=== PATIENT | male | born 1965 | race Caucasian/White ===

== ENCOUNTER 2024-10-06 19:29 | Inpatient (IN) | payer OTHER ==
[2024-10-06 21:00] LABS: BASO % 0.5 % (0-2.0); EOS % 0.5 % (0-4.5); HEMATOCRIT 43.2 % (35.4-49); HEMOGLOBIN 14.9 GM/dL (11.7-16.9); LYMPH % 16.2 % (8-40); MCH 30.6 pg (25.7-33.7); MCHC 34.5 g/dl (32.0-35.9); MEAN CELL VOLUME 88.6 fl (80-96); MEAN PLT VOLUME 7.2 fl (7.5-11.1); MONO % 8.2 % (3.8-10.2); NEUT % 74.6 % (42.8-82.8); PLATELET COUNT 252 10^3/uL (134-434); RBC 4.88 M/mm3 (4.00-5.60); RDW 13.1 % (11.9-15.9); WHITE BLOOD COUNT 11.6 K/mm3 (4.0-10.0)
[2024-10-06 21:01] LABS: URINE APPEARANCE CLEAR; URINE BILIRUBIN NEGATIVE (NEGATIVE); URINE COLOR YELLOW; URINE GLUCOSE (UA) 3+ (NEGATIVE); URINE KETONE NEGATIVE (NEGATIVE); URINE LEUK ESTERASE NEGATIVE (NEGATIVE); URINE NITRITE NEGATIVE (NEGATIVE); URINE PROTEIN NEGATIVE (NEGATIVE); URINE UROBILINOGEN 0.2 mg/dL (0.2-1.0)
[2024-10-06 21:07] LABS: INR 1.04 (0.83-1.09); PROTHROMBIN TIME (PATIENT) 11.9 SEC (9.7-13.0)
[2024-10-06 21:10] LABS: ACTIVATED PTT 33.2 SECONDS (25.2-36.5)
[2024-10-06 21:22] LABS: CHLORIDE 100 mmol/L (98-107); POTASSIUM 4.4 mmol/L (3.5-5.1); SODIUM 136 mmol/L (136-145)
[2024-10-06 21:24] LABS: CALCIUM 9.3 mg/dL (8.5-10.1)
[2024-10-06 21:25] LABS: ALBUMIN 3.4 g/dl (3.4-5.0); ANION GAP 6 mmol/L (4-13); CO2 30 mmol/L (21-32)
[2024-10-06 21:28] LABS: CREATININE 1.1 mg/dL (0.55-1.3); SGOT/AST 10 U/L (15-37); SGPT/ALT 18 U/L (13-61)
[2024-10-06 21:30] LABS: BILIRUBIN,TOTAL 0.3 mg/dL (0.2-1); TOT PROT 6.7 g/dl (6.4-8.2)
[2024-10-06 21:31] LABS: ALK PHOS 171 U/L (45-117)
[2024-10-06] MEDS ORDERED: morphine SULFATE 4 MG/ML VIAL ONE (21:46)
[2024-10-06] MEDS ORDERED: PIPERACILLIN/TAZOB 4.5 GM 4.5 GM/100 ML BAG IVPB ONE (21:47)
[2024-10-06] MEDS: morphine SULFATE 4 MG/ML VIAL IVPUSH ONE (21:50)
[2024-10-06 22:00] LABS: GLUCOSE,RANDOM 462 mg/dL (74-106)
[2024-10-06] MEDS: PIPERACILLIN/TAZOB 3.375 GM 4.5 GM in DEXTROSE 5%-WATER - 50 ML IVPB ONE (22:01)
[2024-10-06] MEDS: SODIUM CHLORIDE 1,000 ML IV STA (23:27)
[2024-10-07] MEDS: LACTATED RINGERS SOLUTION 1000 ML INFUS.BAG IV ONE (01:01)
[2024-10-07] MEDS ORDERED: morphine SULFATE 4 MG/ML VIAL ONE (03:11)
[2024-10-07] MEDS: morphine CARPU-JECT 4 MG/1 ML DISP.SYRIN IVPUSH ONE (03:27)
[2024-10-07 04:29] VITALS: BMI 22.3
[2024-10-07] MEDS: LISINOPRIL 20 MG TABLET PO SCH (10:31)
[2024-10-07] MEDS ORDERED: INSULIN ASPART SLIDING SCALE (NOVOLOG) 1 VIAL SQ SCH (11:00)
[2024-10-07 11:01] LABS: HEMATOCRIT 41.5 % (35.4-49); HEMOGLOBIN 14.1 GM/dL (11.7-16.9); MCH 30.1 pg (25.7-33.7); MEAN CELL VOLUME 88.7 fl (80-96); MEAN PLT VOLUME 7.5 fl (7.5-11.1); PLATELET COUNT 248 10^3/uL (134-434); RBC 4.67 M/mm3 (4.00-5.60); RDW 12.9 % (11.9-15.9); WHITE BLOOD COUNT 11.9 K/mm3 (4.0-10.0)
[2024-10-07 11:21] LABS: ALBUMIN 3.2 g/dl (3.4-5.0); CALCIUM 8.8 mg/dL (8.5-10.1); MAGNESIUM 1.8 mg/dL (1.8-2.4)
[2024-10-07 11:24] LABS: BILIRUBIN,TOTAL 0.5 mg/dL (0.2-1); CREATININE 0.6 mg/dL (0.55-1.3); TOT PROT 6.2 g/dl (6.4-8.2)
[2024-10-07 11:25] LABS: PHOSPHOROUS 2.8 mg/dL (2.5-4.9)
[2024-10-07] MEDS: INSULIN ASPART SLIDING SCALE (NOVOLOG) 1 VIAL SQ SCH (11:29)
[2024-10-07] MEDS: PIPERACILLIN/TAZOB 3.375 GM 50 ML IVPB SCH (15:45)
[2024-10-07] MEDS: ACETAMINOPHEN 325 MG TABLET (FP) PO PRN (21:34)
[2024-10-08 08:31] LABS: BASO % 0.5 % (0-2.0); EOS % 0.7 % (0-4.5); HEMATOCRIT 42.7 % (35.4-49); HEMOGLOBIN 14.2 GM/dL (11.7-16.9); LYMPH % 27.6 % (8-40); MCH 29.8 pg (25.7-33.7); MCHC 33.3 g/dl (32.0-35.9); MEAN CELL VOLUME 89.5 fl (80-96); MEAN PLT VOLUME 7.2 fl (7.5-11.1); NEUT % 63.2 % (42.8-82.8); PLATELET COUNT 267 10^3/uL (134-434); RBC 4.78 M/mm3 (4.00-5.60); WHITE BLOOD COUNT 10.3 K/mm3 (4.0-10.0)
[2024-10-08 08:48] LABS: POTASSIUM 3.9 mmol/L (3.5-5.1)
[2024-10-08 08:59] LABS: ALBUMIN 2.9 g/dl (3.4-5.0); BLOOD UREA NITROGEN 17.7 mg/dL (7-18)
[2024-10-08 09:02] LABS: CREATININE 0.7 mg/dL (0.55-1.3)
[2024-10-08 09:03] LABS: BILIRUBIN,TOTAL 0.5 mg/dL (0.2-1)
[2024-10-08 09:04] LABS: TOT PROT 6.1 g/dl (6.4-8.2)
[2024-10-08] MEDS: INSULIN (NOVOLOG) ASPART 100 UNITS/ML 10ML VIAL SQ ONE (14:24)
[2024-10-10 10:11] LABS: POTASSIUM 3.8 mmol/L (3.5-5.1)
[2024-10-10 10:23] LABS: BLOOD UREA NITROGEN 16.5 mg/dL (7-18)
[2024-10-10 10:27] LABS: BILIRUBIN,TOTAL 0.3 mg/dL (0.2-1); CREATININE 0.7 mg/dL (0.55-1.3); TOT PROT 6.3 g/dl (6.4-8.2)
[2024-10-10 11:06] LABS: BASO % 0.5 % (0-2.0); HEMATOCRIT 42.8 % (35.4-49); HEMOGLOBIN 14.7 GM/dL (11.7-16.9); LYMPH % 33.8 % (8-40); MCH 30.6 pg (25.7-33.7); MCHC 34.4 g/dl (32.0-35.9); MEAN CELL VOLUME 89.1 fl (80-96); MONO % 10.3 % (3.8-10.2); NEUT % 54.4 % (42.8-82.8); PLATELET COUNT 320 10^3/uL (134-434); RBC 4.81 M/mm3 (4.00-5.60); RDW 12.9 % (11.9-15.9); WHITE BLOOD COUNT 6.5 K/mm3 (4.0-10.0)
[2024-10-10] MEDS ORDERED: INSULIN ASPART SLIDING SCALE (NOVOLOG) 1 VIAL SQ ONE (18:23)
[2024-10-11 09:53] LABS: BASO % 0.4 % (0-2.0); EOS % 1.7 % (0-4.5); HEMATOCRIT 42.2 % (35.4-49); HEMOGLOBIN 14.3 GM/dL (11.7-16.9); LYMPH % 37.3 % (8-40); MCH 30.1 pg (25.7-33.7); MEAN CELL VOLUME 88.6 fl (80-96); MEAN PLT VOLUME 7.1 fl (7.5-11.1); MONO % 8.7 % (3.8-10.2); NEUT % 51.9 % (42.8-82.8); PLATELET COUNT 330 10^3/uL (134-434); RBC 4.76 M/mm3 (4.00-5.60); RDW 13.1 % (11.9-15.9)
[2024-10-11 10:11] LABS: POTASSIUM 4.4 mmol/L (3.5-5.1)
[2024-10-11 10:15] LABS: ALBUMIN 3.1 g/dl (3.4-5.0)
[2024-10-11 10:16] LABS: BLOOD UREA NITROGEN 19.3 mg/dL (7-18)
[2024-10-11 10:18] LABS: CREATININE 0.7 mg/dL (0.55-1.3)
[2024-10-11 10:20] LABS: BILIRUBIN,TOTAL 0.2 mg/dL (0.2-1); TOT PROT 6.4 g/dl (6.4-8.2)
[2024-10-11] MEDS ORDERED: PROPOFOL 20 ML ONE (11:15)
[2024-10-11] MEDS ORDERED: LIDOCAINE HCL 2% JELLY 6 ML TP ONE (11:15)
[2024-10-11] MEDS ORDERED: MIDAZOLAM HCL 2 MG/2 ML SINGLE DOSE VIAL ONE ×2 (11:15→14:39)
[2024-10-11] MEDS ORDERED: ONDANSETRON 4 MG/2 ML VIAL ONE (11:15)
[2024-10-11] MEDS: PIPERACILLIN/TAZOBACTAM 3.375 GM VIAL IVPB ONE (13:08)
[2024-10-11] MEDS ORDERED: LIDOCAINE 1%/EPI 1:100000 (20 ML MULTI DOSE VIAL) ONE (13:11)
[2024-10-11] MEDS ORDERED: BUPIVACAINE HCL/PF 0.5% (5MG/ML) 10 ML VIAL ONE (13:11)
[2024-10-11] MEDS ORDERED: PIPERACILLIN/TAZOBACTAM 3.375 GM VIAL IVPB ONE (13:11)
[2024-10-11] MEDS: BUPIVACAINE HCL/PF 0.5% (5 MG/ML) 30 ML VIAL IJ ONE ×2 (13:23)
[2024-10-11] MEDS: LIDOCAINE 1%/EPI 1:100000 (50 ML MULTI DOSE VIAL) INF ONE ×2 (13:23)
[2024-10-11] MEDS ORDERED: ONDANSETRON 4 MG/2 ML VIAL IVPUSH PRN (14:05)
[2024-10-11] MEDS ORDERED: LACTATED RINGERS SOLUTION 1,000 ML IV SCH (14:15)
[2024-10-11] MEDS: IBUPROFEN 600 MG TABLET (FP) PO PRN (16:09)
[2024-10-11] MEDS: PIPERACILLIN/TAZOB 3.375 GM 50 ML IVPB SCH (17:06)
[2024-10-11] MEDS: INSULIN ASPART SLIDING SCALE (NOVOLOG) 1 VIAL SQ SCH (17:21)
[2024-10-12] MEDS: ACETAMINOPHEN 325 MG TABLET (FP) PO PRN (01:15)
[2024-10-12] MEDS: LISINOPRIL 20 MG TABLET PO SCH (09:41)
[2024-10-12] MEDS: INSULIN (LEVEMIR) 100 UNITS/ML UNITS SQ SCH (12:11)
[2024-10-13] MEDS ORDERED: INSULIN (LEVEMIR) 100 UNITS/ML UNITS SQ SCH (08:30)
[2024-10-13] MEDS: INSULIN (NOVOLOG) ASPART 100 UNITS/ML 10ML VIAL SQ SCH (11:25)
[2024-10-13 16:15] VITALS: BP 95/53; PULSE 69; RESP 16; TEMP 99.3
== END 2024-10-13 19:39 | disposition home or self-care (01) | DRG 223 ==
LOC: JER 19:29 → JERBED 10-07 00:26 → J5S 10-07 04:17
PROVIDERS: ADMIT Internal Medicine
PROC: 0D9P7ZZ Drainage of Rectum, Via Natural or Artificial Opening (ICD-10-PCS; principal; 2024-10-11 10:00)
DX: K61.1 Rectal abscess (principal); E11.65 Type 2 diabetes mellitus with hyperglycemia; I10 Essential (primary) hypertension; K59.00 Constipation, unspecified; K62.5 Hemorrhage of anus and rectum; R35.0 Frequency of micturition; R63.0 Anorexia
CPT/HCPCS: 36415; 72193-TC; 80053; 81003; 82272; 82962; 83036; 83735; 84100; 85025; 85027; 85610; 85730; 86850; 86900; 86901; 87086; 88304-TC; 88305-TC; 93005; 93010; 94760; 99285-25